=== PATIENT | female | born 1940 | race Caucasian/White ===

== ENCOUNTER 2022-07-15 06:29 | Day surgery (SDC) | payer MEDICARE, BC, SELFPAY ==
[2022-07-15] VITALS (8 sets, daily range): BP systolic 125–182; BP diastolic 60–78; PULSE 62–73; RESP 16–20; TEMP 36.4–36.5; O2SAT 96–99; BMI 27.4
[2022-07-15] MEDS: BUPIVACAINE 0.5% 30 ML INJECTION (07:45)
[2022-07-15] MEDS: lidocaine HCL 2 % MULTIDOSE 20 ML VIAL INJECTION (07:45)
--- NOTE | 2022-07-15 07:50 | P.ORPRC_ITS ---
Procedure Note Date of procedure: 07/15/22 Procedure: Preop diagnosis: Right hand ring finger stenosing tenosynovitis Postop diagnosis: Right hand ring finger stenosing tenosynovitis Procedure: Right hand ring finger A1 stephanie release Anesthesia: Local Surgeon: Roshan Bell MD geriatric nursing assistant: VICTOR MANUEL Kaiser EBL: 0 mL Complications: None Specimens: None Drains: None Preoperative antibiotics: None Indications: The patient has a history of right upper extremity ring finger painful catching and locking. Despite appropriate non operative management including flexor tendon sheath corticosteroid injections they continue to have symptoms. Operative intervention was recommended. The risks, benefits alternatives and expected outcomes were discussed in detail. These included but were not limited to: Infection, bleeding, injury to blood vessel or nerve, venous thromboembolism. All questions were answered to their satisfaction. The patient was placed supine on the operating room table. Local anesthesia was established with 0.5% Marcaine without epinephrine and 2% lidocaine without epinephrine. The hand was prepped and draped in usual sterile fashion. The limb was elevated the forearm pneumatic tourniquet was inflated to 250 mm of mercury. A transverse incision was made centered over the base of the ring finger in distal palmar crease. Subcutaneous dissection was taken through the palmar fascia to the flexor tendons with the tenotomy scissors. The A1 stephanie was re leased with the 15 blade and a tenotomy scissors. Active flexion and extension of the finger shows no catching or locking, no bowstringing of the flexor tendons. The wound was closed with interrupted nylon sutures. A dry dressing was applied the tourniquet was released. Sponge and needle counts were correct x 2. The patient tolerated the procedure well, there were no apparent complications. They were sent to same day surgery in satisfactory condition. Plan: Use of the hand as tolerates. Discontinue the intraoperative dressing on postoperative day 3 and may get the wound wet as tolerates. Follow up in the office in 2 weeks for a wound check and suture removal.
== END 2022-07-15 08:19 | disposition home or self-care (01) ==
PROVIDERS: PCP Family Medicine; Visit Provider Orthopaedic Surgery
PROC: (CPT 26055; principal; 2022-07-15 07:30)
DX: M65.341 Trigger finger, right ring finger (principal); M65.841 Other synovitis and tenosynovitis, right hand
CPT/HCPCS: 26055; J3490

== ENCOUNTER 2023-04-22 05:25 | Emergency (ER) | payer MEDICARE, BC, SELFPAY ==
[2023-04-22 05:32] VITALS: BP 198/83; PULSE 90; RESP 16; TEMP 36.4; O2SAT 99; BMI 27.0
[2023-04-22 05:52] LABS: Appearance Urine Clear (Clear); Bilirubin Urine Negative (Negative); Blood Urine Trace-intact (Negative); Color Urine Yellow (Yellow); Glucose Urine Negative (Negative); Ketones Urine Negative (Negative); Leukocyte Esterase Urine 1+ (Negative); Nitrite Urine Negative (Negative); Protein Urine Negative (Negative); Urobilinogen Urine 0.2 (0.2-1.0)
[2023-04-22 06:07] LABS: Bacteria Urine Few; RBC Urine 0-2 (0-2); Squamous Epithelial Cell Urine Few (None-Few); WBC Urine 0-2 (0-5)
--- NOTE | 2023-04-22 06:16 | ED_ITS ---
HPI - General Adult General Chief complaint: Abdominal Pain <Fatimah Odonnell MD - Last Filed: 04/27/23 00:02> Stated complaint: back/stomach pains <Fatimah Odonnell MD - Last Filed: 04/27/23 00:02> Time Seen by Provider: 04/22/23 06:02 <Fatimah Odonnell MD - Last Filed: 04/27/23 00:02> Source: patient <Fatimah Odonnell MD - Last Filed: 04/27/23 00:02> Mode of arrival: ambulatory <Fatimah Odonnell MD - Last Filed: 04/27/23 00:02> Limitations: no limitations <Fatimah Odonnell MD - Last Filed: 04/27/23 00:02> History of Present Illness HPI narrative: 83-year-old female reports to hour history of right flank pain radiating to the right upper quadrant of the abdomen. Not accompanied by shortness of breath. Symptoms are nonexertional, coming in crampy waves. No nausea or vomiting. No trauma or injury. No anticoagulant use. No new medications. No prior history of similar symptoms. She denies a prior history of kidney stones. She has had urological workup in the past for hematuria. It sounds like she has had a cystoscopy performed within the last year and Dr. Hernandez has told her that she will continue to have some trace blood in her urine but it is not of concern. She denies any symptoms of dysuria though she has had bladder i nfections in the past. No history of gallbladder disease. She has no history of cardiac disease nor strong family history of such. She has not tried any medications to help with her symptoms. No fever or recent illness. History of prior hysterectomy and oophorectomy Past medical history reportedly notable for hypertension, hyperlipidemia. Medications are reviewed and accurate as listed. Socially she is a nonsmoker with no other cardiac risk factors. No pertinent travel. Allergies to hydrocodone and amoxicillin. ROS notable for the GI and urinary area symptoms as above. Otherwise denies times 12 systems. <Fatimah Odonnell MD - Last Filed: 04/27/23 00:02> Related Data Home medications: Home Medications Medication Instructions Recorded Confirmed atenolol 25 mg tablet 25 mg PO DAILY 06/11/22 04/22/23 hydrochlorothiazide 25 mg tablet 25 mg PO DAILY 06/11/22 04/22/23 losartan 50 mg tablet 50 mg PO DAILY 06/11/22 04/22/23 simvastatin 10 mg tablet 10 mg PO DAILY 06/11/22 04/22/23 cholecalciferol (vitamin D3) 25 25 mcg PO DAILY 07/28/22 04/22/23 mcg (1,000 unit) capsule <Fatimah Odonnell MD - Last Filed: 04/27/23 00:02> Allergies/adverse reactions: Allergies Allergy/AdvReac Type Severity Reaction Status Date / Time cortisone Allergy Verified 07/28/22 15:36 hydrocodone Allergy Hives Verified 04/22/23 05:37 penicillin V Allergy Verified 07/28/22 15:36 amoxicillin AdvReac Hives Verified 04/22/23 05:37 <Fatimah Odonnell MD - Last Filed: 04/27/23 00:02> [facility] Medical History: Medical History Hypertension ?I10 - Essential (primary) hypertension (ICD-10) High cholesterol ?E78.00 - Pure hypercholesterolemia, unspecified (ICD-10) Hernia ?K46.9 - Unspecified abdominal hernia without obstruction or gangrene (ICD- 10) <Fatimah Odonnell MD - Last Filed: 04/27/23 00:02> Surgical History: Surgical History History of hysterectomy ?Z90.710 - Acquired absence of both cervix and uterus (ICD-10) History of appendectomy ?Z90.49 - Acquired absence of other specified parts of digestive tract (ICD- 10) <Fatimah Odonnell MD - Last Filed: 04/27/23 00:02> Social History: Social History Smoking Status: Never smoker How often do you have a drink containing alcohol: never AUDIT-C Alcohol total score: 0 Non-prescribed substance use: denies use <Fatimah Odonnell MD - Last Filed: 04/27/23 00:02> Exam Const: Vital Signs, click to edit/add: Vital Signs - 24 hr 04/22/23 05:32 04/22/23 06:51 04/22/23 08:01 Temperature 97.6 F 97.8 F Pulse Rate [Left P ulse Oximeter] 90 Respiratory Rate 16 16 16 Blood Pressure [Ri ght Upper Arm] 198/83 H 190/83 H 174/83 H Pulse Oximetry 99 99 96 Oxygen Delivery Me thod Room Air Room Air Room Air <Fatimah Odonnell MD - Last Filed: 04/27/23 00:02> Vital Signs, click to edit/add: Vital Signs - 24 hr 04/22/23 05:32 04/22/23 06:51 04/22/23 08:01 Temperature 97.6 F 97.8 F Pulse Rate [Left P ulse Oximeter] 90 Respiratory Rate 16 16 16 Blood Pressure [Ri ght Upper Arm] 198/83 H 190/83 H 174/83 H Pulse Oximetry 99 99 96 Oxygen Delivery Me thod Room Air Room Air Room Air <Bk Benitez MD - Last Filed: 04/26/23 12:26> Documenting provider has reviewed patient's vital signs: yes <Fatimah Odonnell MD - Last Filed: 04/27/23 00:02> Common normals: no apparent distress <Fatimah Odonnell MD - Last Filed: 04/27/23 00:02> General appearance: cooperative and well kempt <Fatimah Odonnell MD - Last Filed: 04/27/23 00:02> Other: Mildly uncomfortable at times. Good historian. Answers questions appropriately. <Fatimah Odonnell MD - Last Filed: 04/27/23 00:02> HENMT: Common normals: normocephalic and head/scalp atraumatic <Fatimah Odonnell MD - Last Filed: 04/27/23 00:02> Head and scalp: normocephalic and atraumatic <Fatimah Odonnell MD - Last Filed: 04/27/23 00:02> Mouth: oral and palatal mucosa normal <Fatimah Odonnell MD - Last Filed: 04/27/23 00:02> Throat: posterior oropharynx normal <Fatimah Odonnell MD - Last Filed: 04/27/23 00:02> Eye: Common normals: conjunctivae normal <Fatimah Odonnell MD - Last Filed: 04/27/23 00:02> General eye: normal appearance of both eyes <Fatimah Odonnell MD - Last Filed: 04/27/23 00:02> Conjunctiva: conjunctiva(e) normal <Fatimah Odonnell MD - Last Filed: 04/27/23 00:02> Resp: Common normals: normal respiratory effort <Fatimah Odonnell MD - Last Filed: 04/27/23 00:02> Psych: Appearance: well kempt <Fatimah Odonnell MD - Last Filed: 04/27/23 00:02> Course Course ED Course: Differential diagnosis including kidney stone, urine infection, gallbladder disease, musculoskeletal etiology, cardiac disease. Most suspicious of kidney stone. Tells me that she usually has blood in the urine, this may skew my interpretation. Since her case is not patent dry and she does not have clear CVA tenderness or classic symptoms, would recommend labs prior to ordering imaging studies. She was agreeable to this. She declines pain medication. <Fatimah Odonnell MD - Last Filed: 04/27/23 00:02> Reevaluation(s) Time of Reevaluation #1: 07:19 <Fatimah Odonnell MD - Last Filed: 04/27/23 00:02> Reevaluation #1: Patient later asked for pain medication, is given Toradol reports that this is already helping. Urinalysis does show trace blood and 1+ leukocyte esterase. Uncertain if this is chronic or due to kidney stone. Recommend CT of the abdomen and pelvis without contrast. The remainder of the labs are reassuring and do not point towards cardiac or gallbladder disease. Await findings. <Fatimah Odonnell MD - Last Filed: 04/27/23 00:02> Time of Reevaluation #2: 08:30 <Fatimah Odonnell MD - Last Filed: 04/27/23 00:02> Reevaluation #2: Concerning CT findings. Discussed options with patient. She is still pain-free after the Toradol. I have recommended advanced imaging. We are able to get her in for an MRI this morning at 11:30 a.m., patient was agreeable to waiting for this. I am concerned for possible malignancy. Will hand over care to incoming day shift partner. <Fatimah Odonnell MD - Last Filed: 04/27/23 00:02> Reevaluation #3: MRI was resulted. During weight Ms. Loredo was certainly more increasingly concerned of potential malignancy. As below thankfully these are not new findings and not significantly changed with radiology locating prior imaging. I discussed these images with Radiology and then with Pauline and her . Study: MRI Abdomen W/ and W/O Cont 15 CC DOTAREM LIVER-04/22/2023 12:03:55 PM Ordering Physician: Belle Sheridan Final Report: INDICATION: Abdominal pain, mass on CT. TECHNIQUE: MRI of the abdomen without and with 15 cc Dotarem IV contrast. COMPARISON: CT of the abdomen and pelvis without IV contrast 04/22/2023 and 06/23/2009. There are reportedly remote prior contrast-enhanced CT and MRI which are not currently available. FINDINGS: Non cirrhotic configuration of the liver. No hepatic steatosis. There are multiple T2 hyperintense lesions throughout both lobes of the liver which demonstrate early peripheral nodular discontinuous enhancement with progressive central enhancement on the delayed phases. Findings are compatible with benign hemangiomas. The largest lesion measures 3.5 cm in the lateral right hepatic lobe. The lesions are not significantly changed in size since 2008. Hepatic and portal veins are patent. The gallbladder, spleen, and right adrenal gland are negative. There is a 1.7 cm left adrenal nodule which demonstrates signal loss on opposed phase imaging compatible with a benign adenoma. This previously measured 1.0 cm in 2008. No intra or extrahepatic bile duct dilation. There are a few small cystic lesions throughout the pancreas, the largest of which measures 0.9 cm in the pancreatic tail (series 8 image 20). 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 No suspicious features. No dilation of the main pancreatic duct. Symmetric enhancement of the kidneys. No solid renal mass. No hydronephrosis. No bowel dilation. The duodenal wall thickening described on same-day CT is not appreciated on this exam. No free fluid or lymphadenopathy in the upper abdomen. Marrow signal is within normal limits. IMPRESSION: 1. Multiple benign hepatic hemangiomas which are not significantly changed in size since 2008. No suspicious liver lesions. 2. Slightly increased size of a benign left adrenal adenoma. 3. 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 Consider follow-up MRI/MRCP in 1-2 years to assess stability. 4. Findings discussed with Bk Benitez at 1:48 p.m. on 04/22/2023. <Bk Benitez MD - Last Filed: 04/26/23 12:26> Vital Signs Vital signs: Initial Vital Signs Temperature 97.6 F 04/22/23 05:32 Temperature Source Temporal Artery Scan 04/22/23 05:32 Pulse Rate 90 04/22/23 05:32 Respiratory Rate 16 04/22/23 05:32 Blood Pressure 198/83 H 04/22/23 05:32 Blood Pressure Mean 121 H 04/22/23 05:32 Blood Pressure Position Sitting 04/22/23 05:32 Pulse Oximetry 99 04/22/23 05:32 Oxygen Delivery Method Room Air 04/22/23 05:32 Vital Signs Temperature 97.6 F 04/22/23 05:32 Pulse Rate 90 04/22/23 05:32 Respiratory Rate 16 04/22/23 05:32 Blood Pressure 198/83 H 04/22/23 05:32 Pulse Oximetry 99 04/22/23 05:32 Oxygen Delivery Method Room Air 04/22/23 05:32 Temperature 97.8 F 04/22/23 08:01 Pulse Rate 88 04/22/23 14:41 Respiratory Rate 18 04/22/23 14:41 Blood Pressure 158/74 H 04/22/23 14:41 Pulse Oximetry 97 04/22/23 14:41 Oxygen Delivery Method Room Air 04/22/23 14:41 <Fatimah Odonnell MD - Last Filed: 04/27/23 00:02> Initial Vital Signs Temperature 97.6 F 04/22/23 05:32 Temperature Source Temporal Artery Scan 04/22/23 05:32 Pulse Rate 90 04/22/23 05:32 Respiratory Rate 16 04/22/23 05:32 Blood Pressure 198/83 H 04/22/23 05:32 Blood Pressure Mean 121 H 04/22/23 05:32 Blood Pressure Position Sitting 04/22/23 05:32 Pulse Oximetry 99 04/22/23 05:32 Oxygen Delivery Method Room Air 04/22/23 05:32 Vital Signs Temperature 97.6 F 04/22/23 05:32 Pulse Rate 90 04/22/23 05:32 Respiratory Rate 16 04/22/23 05:32 Blood Pressure 198/83 H 04/22/23 05:32 Pulse Oximetry 99 04/22/23 05:32 Oxygen Delivery Method Room Air 04/22/23 05:32 Temperature 97.8 F 04/22/23 08:01 Pulse Rate 88 04/22/23 14:41 Respiratory Rate 18 04/22/23 14:41 Blood Pressure 158/74 H 04/22/23 14:41 Pulse Oximetry 97 04/22/23 14:41 Oxygen Delivery Method Room Air 04/22/23 14:41 <Bk Benitez MD - Last Filed: 04/26/23 12:26> Medical Decision Making MDM Narrative Medical decision making narrative: See patient discharge plan <Bk Benitez MD - Last Filed: 04/26/23 12:26> Lab Data Lab results reviewed: Yes I reviewed the patient's lab results <Fatimah Odonnell MD - Last Filed: 04/27/23 00:02> Labs: Lab Results 04/22/23 04/22/23 Range/Units 05:47 06:20 WBC 7.85 (4.50-11.00) K/uL RBC 4.87 (4.00-5.20) m/uL Hgb 14.0 (12.0-16.0) gm/dL Hct 41.3 (33.0-51.0) % MCV 85 (80-100) fL MCH 29 (26-34) pg MCHC 34 (32-36) gm/dL RDW Coeff of Chris 12.4 (11.5-15.5) % Plt Count 193 (140-440) K/uL Neut % (Auto) 74.6 H (42.0-72.0) % Lymph % (Auto) 17.3 L (20-44) % [place] % (Auto) 6.8 (0.0-11.0) % Eos % (Auto) 0.9 (0.0-7.0) % Baso % (Auto) 0.3 (0.0-3.0) % Neut # (Auto) 5.90 (1.7-7.0) K/uL Lymph # (Auto) 1.40 (0.90-2.90) K/uL [place] # (Auto) 0.50 (0.00-0.90) K/UL Eos # (Auto) 0.07 (0.00-0.50) K/uL Baso # (Auto) 0.02 (0.00-0.30) K/uL Abs Immat Gran (auto) 0.01 (0.00-0.30) K/uL Imm/Tot Granulo (auto) 0.1 % Sodium 140 (135-149) mmol/L Potassium 3.8 (3.6-5.1) mmol/L Chloride 105 (96-114) mmol/L Carbon Dioxide 26 (20-32) mmol/L Anion Gap 9 (7-15) mEq/L BUN 21 (7-30) mg/dL Creatinine 0.8 (0.5-1.5) mg/dL Estimated Creat Clear 37.68 Estimated GFR 73 ml/min Glucose 112 (60-115) mg/dL Calcium 9.5 (8.4-10.6) mg/dL Total Bilirubin 0.4 (0.1-1.5) mg/dL AST 28 (12-35) U/L ALT 21 (4-35) U/L Alkaline Phosphatase 59 (40-150) U/L C-Reactive Protein < 0.5 L (0.5-1.0) mg/dL Total Protein 7.4 (6.0-8.3) g/dL Albumin 4.2 (3.3-5.0) g/dL Lipase 192 (23-300) U/L Urine Color Yellow (Yellow) Urine Appearance Clear (Clear) Urine pH 7.0 (5.0-8.5) Ur Specific Heartwell 1.010 (1.000-1.030) Urine Protein Negative (Negative) Urine Glucose (UA) Negative (Negative) Urine Ketones Negative (Negative) Urine Blood Trace-intact A (Negative) Urine Nitrite Negative (Negative) Urine Bilirubin Negative (Negative) Urine Urobilinogen 0.2 (0.2-1.0) Ur Leukocyte Esterase 1+ A (Negative) Urine RBC 0-2 (0-2) Urine WBC 0-2 (0-5) Ur Squamous Epith Cells Few (None-Few) Urine Bacteria Few A (None) POC Troponin I 0.00 L (0.01-0.04) ng/ml <Fatimah Odonnell MD - Last Filed: 04/27/23 00:02> Lab Results 04/22/23 04/22/23 Range/Units 05:47 06:20 WBC 7.85 (4.50-11.00) K/uL RBC 4.87 (4.00-5.20) m/uL Hgb 14.0 (12.0-16.0) gm/dL Hct 41.3 (33.0-51.0) % MCV 85 (80-100) fL MCH 29 (26-34) pg MCHC 34 (32-36) gm/dL RDW Coeff of Chris 12.4 (11.5-15.5) % Plt Count 193 (140-440) K/uL Neut % (Auto) 74.6 H (42.0-72.0) % Lymph % (Auto) 17.3 L (20-44) % [place] % (Auto) 6.8 (0.0-11.0) % Eos % (Auto) 0.9 (0.0-7.0) % Baso % (Auto) 0.3 (0.0-3.0) % Neut # (Auto) 5.90 (1.7-7.0) K/uL Lymph # (Auto) 1.40 (0.90-2.90) K/uL [place] # (Auto) 0.50 (0.00-0.90) K/UL Eos # (Auto) 0.07 (0.00-0.50) K/uL Baso # (Auto) 0.02 (0.00-0.30) K/uL Abs Immat Gran (auto) 0.01 (0.00-0.30) K/uL Imm/Tot Granulo (auto) 0.1 % Sodium 140 (135-149) mmol/L Potassium 3.8 (3.6-5.1) mmol/L Chloride 105 (96-114) mmol/L Carbon Dioxide 26 (20-32) mmol/L Anion Gap 9 (7-15) mEq/L BUN 21 (7-30) mg/dL Creatinine 0.8 (0.5-1.5) mg/dL Estimated Creat Clear 37.68 Estimated GFR 73 ml/min Glucose 112 (60-115) mg/dL Calcium 9.5 (8.4-10.6) mg/dL Total Bilirubin 0.4 (0.1-1.5) mg/dL AST 28 (12-35) U/L ALT 21 (4-35) U/L Alkaline Phosphatase 59 (40-150) U/L C-Reactive Protein < 0.5 L (0.5-1.0) mg/dL Total Protein 7.4 (6.0-8.3) g/dL Albumin 4.2 (3.3-5.0) g/dL Lipase 192 (23-300) U/L Urine Color Yellow (Yellow) Urine Appearance Clear (Clear) Urine pH 7.0 (5.0-8.5) Ur Specific [place] 1.010 (1.000-1.030) Urine Protein Negative (Negative) Urine Glucose (UA) Negative (Negative) Urine Ketones Negative (Negative) Urine Blood Trace-intact A (Negative) Urine Nitrite Negative (Negative) Urine Bilirubin Negative (Negative) Urine Urobilinogen 0.2 (0.2-1.0) Ur Leukocyte Esterase 1+ A (Negative) Urine RBC 0-2 (0-2) Urine WBC 0-2 (0-5) Ur Squamous Epith Cells Few (None-Few) Urine Bacteria Few A (None) POC Troponin I 0.00 L (0.01-0.04) ng/ml <Bk Benitez MD - Last Filed: 04/26/23 12:26> Imaging Data CT scan - abdomen: Attestation: I have reviewed the pertinent imaging results. <Fatimah Odonnell MD - Last Filed: 04/27/23 00:02> My impression: Unexpected liver masses <Fatimah Odonnell MD - Last Filed: 04/27/23 00:02> Radiologist's impression: IMPRESSION: Segmental wall thickening of the duodenum involving the 2nd, 3rd and 4th segments. This finding is nonspecific. Differential diagnostic considerations include, but are not limited to, duodenitis. No focal mural lesion is identified. As always, the clinical significance of imaging findings should be correlated with the patient`s clinical status. If indicated, consider gastroenterology referral for further evaluation (endoscopy). Multiple incidental incompletely characterized liver lesions described above. A nonemergent MRI of the liver or liver mass protocol CT with intravenous contrast is recommended for further characterization according to published management guidelines for incidental finding such as this. If prior imaging is available documenting the stability of these findings and/or if the patient is not a candidate for further treatment based on comorbidities and patient preference, no further imaging workup need be done. Clinical correlation is therefore recommended. Please note that evaluation of the vasculature, bowel and solid viscera is limited without intravenous contrast, as discussed above. <Fatimah Odonnell MD - Last Filed: 04/27/23 00:02> ECG Data Attestation: I personally reviewed and interpreted this ECG as follows: <Fatimah Odonnell MD - Last Filed: 04/27/23 00:02> Prior ECG tracings: not available for review <Fatimah Odonnell MD - Last Filed: 04/27/23 00:02> Interpretation: Normal sinus rhythm, rate of 80. No significant ST or T-wave abnormalities. Normal axis. Normal EKG. <Fatimah Odonnell MD - Last Filed: 04/27/23 00:02> Discharge Plan Discharge Clinical Impression: Flank pain, Hepatic hemangioma, Cyst of pancreas <Fatimah Odonnell MD - Last Filed: 04/27/23 00:02> Patient Disposition: Home w/ Parent or Adult <Fatimah Odonnell MD - Last Filed: 04/27/23 00:02> Condition: Improved <Fatimah Odonnell MD - Last Filed: 04/27/23 00:02> Additional Instructions: Remains unclear what the cause of this flank pain is. I hope it just resolves for you. Given the lack of reproducibility seems like it is not musculoskeletal in nature. Might yet have a dysfunctional gallbladder? I suppose pain could be related to this/these hemangioma though these are not really changed since 2008. can take ibuprofen or acetaminophen or alternative to the ibuprofen might be naproxen for pain. Watch for rash. Can return for persistent, increasing pain. Can discuss in follow-up with your primary care provider given findings in your MRI today. <Fatimah Odonnell MD - Last Filed: 04/27/23 00:02> Prescriptions: No Action hydrochlorothiazide 25 mg tablet 25 mg PO DAILY Patient Comments: TAKE ONE TABLET BY MOUTH ONE TIME DAILY atenolol 25 mg tablet 25 mg PO DAILY Patient Comments: TAKE ONE TABLET BY MOUTH ONE TIME DAILY simvastatin 10 mg tablet 10 mg PO DAILY Patient Comments: TAKE ONE TABLET BY MOUTH ONE TIME DAILY AT BEDTIME losartan 50 mg tablet 50 mg PO DAILY Patient Comments: TAKE ONE TABLET BY MOUTH ONE TIME DAILY cholecalciferol (vitamin D3) 25 mcg (1,000 unit) capsule 25 mcg PO DAILY <Fatimah Odonnell MD - Last Filed: 04/27/23 00:02> Follow Up/Referrals: Adriana Quintanilla MD [Referring] - <Fatimah Odonnell MD - Last Filed: 04/27/23 00:02> Stand Alone Forms: My[facility] Info Instructions <Fatimah Odonnell MD - Last Filed: 04/27/23 00:02>
[2023-04-22 06:31] LABS: Basophils Absolute Auto 0.02 K/uL (0.00-0.30); Basophils Percent Auto 0.3 % (0.0-3.0); Eosinophils Absolute Auto 0.07 K/uL (0.00-0.50); Eosinophils Percent Auto 0.9 % (0.0-7.0); Hematocrit 41.3 % (33.0-51.0); Immature Granulocytes Abs Auto 0.01 K/uL (0.00-0.30); Immature Granulocytes Pct Auto 0.1 %; Lymphocytes Percent Auto 17.3 % (20-44); Mean Corpuscular HGB Conc 34 gm/dL (32-36); Mean Corpuscular Hemoglobin 29 pg (26-34); Mean Corpuscular Volume 85 fL (80-100); Monocytes Percent Auto 6.8 % (0.0-11.0); Neutrophils Percent Auto 74.6 % (42.0-72.0); Platelet Count* 193 K/uL (140-440); RDW Coefficient of Variation % 12.4 % (11.5-15.5); Red Blood Count 4.87 m/uL (4.00-5.20); Slide Review Reflex No; White Blood Count* 7.85 K/uL (4.50-11.00)
[2023-04-22 06:51] VITALS: BP 190/83; RESP 16; O2SAT 99
[2023-04-22] MEDS: KETOROLAC 15 MG/ML inj IVP (06:52)
[2023-04-22 07:02] LABS: Albumin* 4.2 g/dL (3.3-5.0); Chloride* 105 mmol/L (96-114); Sodium* 140 mmol/L (135-149)
[2023-04-22 07:03] LABS: Potassium* 3.8 mmol/L (3.6-5.1)
[2023-04-22 07:05] LABS: Creatinine* 0.8 mg/dL (0.5-1.5); Est. Creatinine Clearance* 37.68; Estimated Glomerular Filt Rate 73 ml/min
[2023-04-22 07:06] LABS: Alanine Aminotransferase* 21 U/L (4-35); Alkaline Phosphatase* 59 U/L (40-150); Anion Gap 9 mEq/L (7-15); Aspartate Amino Transferase* 28 U/L (12-35); Bilirubin Total* 0.4 mg/dL (0.1-1.5); Blood Urea Nitrogen* 21 mg/dL (7-30); Calcium* 9.5 mg/dL (8.4-10.6); Carbon Dioxide* 26 mmol/L (20-32); Glucose* 112 mg/dL (60-115); Lipase* 192 U/L (23-300); Total Protein* 7.4 g/dL (6.0-8.3)
[2023-04-22 07:10] LABS: C Reactive Protein* < 0.5 mg/dL (0.5-1.0)
--- NOTE | 2023-04-22 07:17 | CRLHL7_ITS ---
For Patients: As a result of the 21st Century Cures Act, medical imaging exams and procedure reports are released immediately into your electronic medical record. You may view this report before your referring provider. If you have questions, please contact your health care provider. INDICATION: Right flank pain. TECHNIQUE: CT abdomen and pelvis without contrast. COMPARISON: None available. FINDINGS: The study is performed without intravenous contrast. This limits sensitivity for detection of abdominal/pelvic pathology, including pathology of the vasculature (specifically evaluation of possible vascular thromboembolism, arterial dissection, stenosis or occlusion), the integrity of the bowel (including bowel wall enhancement) and solid viscera (including detection of focal lesions within the viscera). If there is ongoing concern for otherwise occult pathology such as this, based on the clinical presentation of the patient, consider the risk/benefit of a study with intravenous contrast. Lower chest: Mild multivessel atherosclerotic coronary artery calcifications. Liver: Multiple incompletely characterized rounded oval circumscribed homogeneous relatively low-density, compared to liver, lesions in the right hepatic lobe, the largest in the subcapsular aspect of segment 8 measuring 29 mm and 41 HU (2; 36). A nonemergent MRI of the liver or liver mass protocol CT with intravenous contrast is recommended for further characterization according to published management guidelines for incidental finding such as this. Gallbladder and bile ducts: No stones or inflammation. No biliary dilatation. Pancreas: Unremarkable. No mass or inflammation. Spleen: Normal in size. No masses. Adrenal glands: 19 mm 8 HU left adrenal adenoma (2; 45). Kidneys: Normal in size. No suspicious masses, stones, or hydronephrosis. GI tract: Segmental wall thickening of the duodenum involving the 2nd, 3rd and 4th segments. This finding is nonspecific. Differential diagnostic considerations include, but are not limited to, duodenitis. No focal mural lesion is identified. Vasculature: Abdominal aorta is normal in caliber. Moderate atherosclerotic aortoiliac mural calcification. Lymph nodes: No lymphadenopathy. Peritoneum/Abdominal Wall: Unremarkable. No sign of mass or infiltration. No free air or significant free fluid. Pelvis: Unremarkable. No pelvic masses. Bones: Posterior inferior L2 vertebral body round sclerotic focus most consistent with a bone island, not considered clinically significant in the absence of an established history of malignancy. IMPRESSION: Segmental wall thickening of the duodenum involving the 2nd, 3rd and 4th segments. This finding is nonspecific. Differential diagnostic considerations include, but are not limited to, duodenitis. No focal mural lesion is identified. As always, the clinical significance of imaging findings should be correlated with the patient`s clinical status. If indicated, consider gastroenterology referral for further evaluation (endoscopy). Multiple incidental incompletely characterized liver lesions described above. A nonemergent MRI of the liver or liver mass protocol CT with intravenous contrast is recommended for further characterization according to published management guidelines for incidental finding such as this. If prior imaging is available documenting the stability of these findings and/or if the patient is not a candidate for further treatment based on comorbidities and patient preference, no further imaging workup need be done. Clinical correlation is therefore recommended. Please note that evaluation of the vasculature, bowel and solid viscera is limited without intravenous contrast, as discussed above. Please note that all CT scans at this facility use dose modulation, iterative reconstruction, and/or weight-based dosing when appropriate to reduce radiation dose to as low as reasonably achievable. Dictated by Mendez Valdez MD @ 04/22/2023 8:06:51 AM (Electronically Signed)
[2023-04-22 08:01] VITALS: BP 174/83; RESP 16; TEMP 36.6; O2SAT 96
--- NOTE | 2023-04-22 08:24 | CRLHL7_ITS ---
For Patients: As a result of the Century Cures Act, medical imaging exams and procedure reports are released immediately into your electronic medical record. You may view this report before your referring provider. If you have questions, please contact your health care provider. INDICATION: Abdominal pain, mass on CT. TECHNIQUE: MRI of the abdomen without and with 15 cc Dotarem IV contrast. COMPARISON: CT of the abdomen and pelvis without IV contrast 04/22/2023 and 06/23/2009. There are reportedly remote prior contrast-enhanced CT and MRI which are not currently available. FINDINGS: Non cirrhotic configuration of the liver. No hepatic steatosis. There are multiple T2 hyperintense lesions throughout both lobes of the liver which demonstrate early peripheral nodular discontinuous enhancement with progressive central enhancement on the delayed phases. Findings are compatible with benign hemangiomas. The largest lesion measures 3.5 cm in the lateral right hepatic lobe. The lesions are not significantly changed in size since 2008. Hepatic and portal veins are patent. The gallbladder, spleen, and right adrenal gland are negative. There is a 1.7 cm left adrenal nodule which demonstrates signal loss on opposed phase imaging compatible with a benign adenoma. This previously measured 1.0 cm in 2008. No intra or extrahepatic bile duct dilation. There are a few small cystic lesions throughout the pancreas, the largest of which measures 0.9 cm in the pancreatic tail (series 8 image 20). 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 No suspicious features. No dilation of the main pancreatic duct. Symmetric enhancement of the kidneys. No solid renal mass. No hydronephrosis. No bowel dilation. The duodenal wall thickening described on same-day CT is not appreciated on this exam. No free fluid or lymphadenopathy in the upper abdomen. Marrow signal is within normal limits. IMPRESSION: 1. Multiple benign hepatic hemangiomas which are not significantly changed in size since 2008. No suspicious liver lesions. 2. Slightly increased size of a benign left adrenal adenoma. 3. 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 Consider follow-up MRI/MRCP in 1-2 years to assess stability. 4. Findings discussed with Bk Benitez at 1:48 p.m. on 04/22/2023. Dictated by Yulissa Werner MD @ 04/22/2023 1:51:56 PM (Electronically Signed)
[2023-04-22 14:41] VITALS: BP 158/74; PULSE 88; RESP 18; O2SAT 97
== END 2023-04-22 14:40 | disposition home or self-care (01) ==
PROVIDERS: Emergency Provider Family Medicine; PCP Family Medicine
DX: R10.9 Unspecified abdominal pain (principal); D18.09 Hemangioma of other sites; K86.2 Cyst of pancreas
CPT/HCPCS: 36415; 74176; 74183; 80053; 81001; 81003; 81015; 83690; 84484; 85025; 86140; 87086; 93005; 96374; 99284; 99285; A9575; J1885

== ENCOUNTER 2024-05-11 11:00 | Outpatient (RCR) | payer MEDICARE, BC, SELFPAY | END 2024-05-11 11:49 | disposition home or self-care (01) | PROVIDERS: PCP Family Medicine; Visit Provider Student in an Organized Health Care Education/Training Program | DX: M54.6 Pain in thoracic spine (principal); M94.0 Chondrocostal junction syndrome [Tietze]; M54.12 Radiculopathy, cervical region; Z51.89 Encounter for other specified aftercare | CPT/HCPCS: 97110; 97161 ==